=== PATIENT | female | born 1980 | race Hispanic/Latino ===

== ENCOUNTER 2024-08-02 13:00 | Day surgery (SDC) | payer BC | END 2024-08-02 15:00 | disposition home or self-care (01) | LOC: CSHNM 13:00 | PROVIDERS: ATTEND Specialist | DX: C50.911 Malignant neoplasm of unspecified site of right female breast (principal) | CPT/HCPCS: 78195; A9541 ==

== ENCOUNTER 2024-09-12 13:49 | Outpatient (CLI) | payer BC | END 2024-09-12 13:50 | disposition home or self-care (01) | LOC: CSHULT 13:49 | PROVIDERS: ATTEND Internal Medicine Hematology & Oncology | DX: C50.811 Malignant neoplasm of overlapping sites of right female breast (principal); Z79.60 Long term (current) use of unspecified immunomodulators and immunosuppressants; I51.9 Heart disease, unspecified | CPT/HCPCS: 93306 ==